=== PATIENT | male | born 1980 | race American Indian/Alaskan Native ===

== ENCOUNTER 2018-10-23 16:16 | Emergency (ER) | payer SELFPAY ==
[2018-10-23 17:56] VITALS: BP 119/74
--- NOTE | 2018-10-23 17:58 | Event Note ---
ED Screening Note Date of service: 10/23/18 Time: 17:56 ED Screening Note: 37 y/o male come in for abd pain since last night. Admits to diarrhea with 4 episodes. Last episode 1 hour [employer]. Took Pepto Bismol. No nausea pain diffused. This initial assessment/diagnostic orders/clinical plan/treatment(s) is/are subject to change based on patients health status, clinical progression and re- assessment by fellow clinical providers in the ED. Further treatment and workup at subsequent clinical providers discretion. Patient/guardian urged not to elope from the ED as their condition may be serious if not clinically assessed and managed. Initial orders include:
[2018-10-23 18:55] LABS: Basophils % (Auto) 0.6 % (0.0-1.8); Eosinophils # (Auto) 0.1 K/mm3 (0.0-0.4); Eosinophils % (Auto) 1.2 % (0.0-4.3); Hematocrit 41.4 % (35.5-45.6); Hemoglobin 13.5 gm/dl (11.8-15.2); Lymphocytes # (Auto) 3.9 K/mm3 (1.2-5.4); Lymphocytes % (Auto) 49.6 % (13.4-35.0); Mean Corpuscular HGB Conc 33 % (32-34); Mean Corpuscular Volume 86 fl (84-94); Monocytes # (Auto) 0.8 K/mm3 (0.0-0.8); Monocytes % (Auto) 10.1 % (0.0-7.3); Platelet Count 211 K/mm3 (140-440); Red Blood Count 4.81 M/mm3 (3.65-5.03); Red Cell Distribution Width 14.6 % (13.2-15.2)
[2018-10-23] MEDS ORDERED: LOMOTIL PO ONE (19:17)
[2018-10-23] MEDS ORDERED: PEPCID PO ONE (19:17)
[2018-10-23] MEDS ORDERED: ZOFRAN ODT PO ONE (19:17)
[2018-10-23] MEDS ORDERED: BENTYL ONE (19:48)
[2018-10-23 19:53] LABS: BUN/Creatinine Ratio 13; Blood Urea Nitrogen 14 mg/dL (9-20); Calcium 9.3 mg/dL (8.4-10.2)
[2018-10-23 19:54] LABS: Alanine Aminotransferase 10 units/L (7-56); Albumin 4.3 g/dL (3.9-5); Hemolysis Index 16
[2018-10-23] MEDS ORDERED: BENTYL PO ONE (20:18)
--- NOTE | 2018-10-23 20:41 | Emergency Department Report ---
ED N/V/D HPI - General Chief complaint: Nausea/Vomiting/Diarrhea Stated complaint: STOMACH VIRUS/DIARRHEA Time Seen by Provider: 10/23/18 17:55 Source: patient Mode of arrival: Ambulatory Limitations: No Limitations - History of Present Illness Initial comments: Patient is a 37-year-old AA male with no past medical history presents to the ED with complaint of acute onset persistent diarrhea, nausea, vomiting, and diffuse mild abdominal pain for the last 3 days. Patient states that the last time he had nausea and vomiting was 24 hours ago but that the diarrhea has been persistent. Patient denies fever, chills, dysuria, urinary frequency and urgen cy, testicular pain, chest pain, shortness of breath, sore throat, dizziness, back pain, hematuria or penile discharge. MD complaint: nausea, vomiting, diarrhea, abdominal pain -: Sudden, days(s) (3) Description of Vomiting: food contents, watery Description of Diarrhea: water Associated Abdominal Pain: Yes (Mildly diffuse) Location: diffuse Radiation: none Severity: moderate Pain Scale: 4 Quality: aching, dull Consistency: intermittent Improves with: none Worsens with: eating Context: possible food poisoning Associated Symptoms: denies other symptoms, loss of appetite, nausea/vomiting. denies: myalgias, chest pain, cough, diaphoresis, fever/chills, headaches, malaise, rash, dysuria, shortness of breath, syncope, weakness - Related Data Previous Rx's Medication Instructions Recorded Last Taken Type Dicyclomine [Bentyl] 20 mg PO Q6H PRN #20 tablet 10/23/18 Unknown Rx Diphenoxylate/Atropine [Lomotil] 1 - 2 tab PO Q4H PRN #15 tablet 10/23/18 Unknown Rx Ondansetron [Zofran Odt] 4 mg PO Q6HR PRN #15 tab.rapdis 10/23/18 Unknown Rx raNITIdine HCl [Zantac] 150 mg PO Q12H #20 tablet 10/23/18 Unknown Rx Allergies Allergy/AdvReac Type Severity Reaction Status Date / Time No Known Allergies Allergy Unverified 10/23/18 16:40 ED Review of Systems ROS: Stated complaint: STOMACH VIRUS/DIARRHEA Other details as noted in HPI Constitutional: denies: chills, fever Eyes: denies: eye pain, eye discharge, vision change ENT: denies: ear pain, throat pain Respiratory: denies: cough, shortness of breath, wheezing Cardiovascular: denies: chest pain, palpitations Endocrine: no symptoms reported Gastrointestinal: abdominal pain, nausea, vomiting, diarrhea Genitourinary: denies: urgency, dysuria Musculoskeletal: denies: back pain, joint swelling, arthralgia Skin: denies: rash, lesions Neurological: denies: headache, weakness, paresthesias Psychiatric: denies: anxiety, depression Hematological/Lymphatic: denies: easy bleeding, easy bruising ED Past Medical Hx - Past Medical History Previous Medical History?: No - Surgical History Past Surgical History?: No - Social History Smoking Status: Current Every Day Smoker Substance Use Type: None - Medications Home Medications: Home Medications Medication Instructions Recorded Confirmed Last Taken Type Dicyclomine [Bentyl] 20 mg PO Q6H PRN #20 tablet 10/23/18 Unknown Rx Diphenoxylate/Atropine [Lomotil] 1 - 2 tab PO Q4H PRN #15 tablet 10/23/18 Unknown Rx Ondansetron [Zofran Odt] 4 mg PO Q6HR PRN #15 tab.rapdis 10/23/18 Unknown Rx raNITIdine HCl [Zantac] 150 mg PO Q12H #20 tablet 10/23/18 Unknown Rx ED Physical Exam - General Limitations: No Limitations General appearance: alert, in no apparent distress - Head Head exam: Present: atraumatic, normocephalic, normal inspection - Eye Eye exam: Present: normal appearance, PERRL, EOMI. Absent: scleral icterus, conjunctival injection, nystagmus - ENT ENT exam: Present: normal exam, normal orophraynx, mucous membranes moist, TM's normal bilaterally, normal external ear exam - Neck Neck exam: Present: normal inspection, full ROM - Respiratory Respiratory exam: Present: normal lung sounds bilaterally. Absent: respiratory distress, wheezes, rales, rhonchi, chest wall tenderness, accessory muscle use, prolonged expiratory - Cardiovascular Cardiovascular Exam: Present: regular rate, normal rhythm, normal heart sounds. Absent: systolic murmur, diastolic murmur, rubs, gallop - GI/Abdominal GI/Abdominal exam: Present: soft, normal bowel sounds. Absent: distended, tenderness, guarding, rebound, hyperactive bowel sounds, hypoactive bowel sounds, mass - Rectal Rectal exam: Present: deferred - Extremities Exam Extremities exam: Present: normal inspection, full ROM, normal capillary refill - Back Exam Back exam: Present: normal inspection, full ROM. Absent: CVA tenderness (L), muscle spasm, paraspinal tenderness, vertebral tenderness - Neurological Exam Neurological exam: Present: alert, oriented X3, CN II-XII intact, normal gait, reflexes normal - Psychiatric Psychiatric exam: Present: normal affect, normal mood - Skin Skin exam: Present: warm, dry, intact, normal color. Absent: rash ED Course Vital Signs 10/23/18 17:54 Temperature 97.8 F Pulse Rate 80 Respiratory 18 Rate Blood Pressure 119/74 O2 Sat by Pulse 99 Oximetry - Reevaluation(s) Reevaluation #1: 10/23/18 20:40 This is a 37-year-old male who presented to the ED with nausea, vomiting, diarrhea and mild diffuse abdominal pain due to a suspected food poisoning. Patient is alert and oriented 3 in the ED and is not in distress. Labs were drawn and patient was treated for nausea and vomiting. Lab test results were reviewed and are unremarkable. Patient sent home on medications and advised follow-up with his primary care physician in 7-10 days for reevaluation or return to the ED immediately if symptoms get worse. ED Medical Decision Making - Lab Data Result diagrams: 10/23/18 18:37 10/23/18 19:00 - Medical Decision Making This is a 37-year-old male who presented to the ED with nausea, vomiting, diarrhea and mild diffuse abdominal pain due to a suspected food poisoning. Patient is alert and oriented 3 in the ED and is not in distress. Labs were drawn and patient was treated for nausea and vomiting. Lab test results were reviewed and are unremarkable. Patient sent home on medications and advised follow-up with his primary care physician in 7-10 days for reevaluation or return to the ED immediately if symptoms get worse - Differential Diagnosis Viral gastroenteritis; Nausea, vomiting and diarrhea Critical care attestation.: If time is entered above; I have spent that time in minutes in the direct care of this critically ill patient, excluding procedure time. ED Disposition Clinical Impression: Viral gastroenteritis, Nausea, vomiting and diarrhea Abdominal pain Qualifiers: Abdominal location: generalized Qualified Code(s): R10.84 - Generalized abdominal pain Disposition: TO HOME OR SELFCARE Is pt being admited?: No Does the pt Need Aspirin: No Condition: Stable Instructions: Acute Nausea and Vomiting (ED), Abdominal Pain (ED), Gastroenteritis (ED) Additional Instructions: TAKE MEDICATIONS WITH FOOD, DRINK PLENTY OF FLUIDS AND FOLLOW UP WITH YOUR PRIMARY CARE PHYSICIAN IN 5-7 DAYS FOR REEVALUATION. RETURN TO THE ED IMMEDIATELY IF SYMPTOMS GET WORSE. Prescriptions: Dicyclomine [Bentyl] 20 mg PO Q6H PRN #20 tablet PRN Reason: Pain , Severe (7-10) Diphenoxylate/Atropine [Lomotil] 1 - 2 tab PO Q4H PRN #15 tablet PRN Reason: Diarrhea raNITIdine HCl [Zantac] 150 mg PO Q12H #20 tablet Ondansetron [Zofran Odt] 4 mg PO Q6HR PRN #15 tab.rapdis PRN Reason: Nausea Referrals: [facility] [Outside] - 3-5 Days Forms: Work/School Release Form(ED) Time of Disposition: 20:45 Print Language: ZAMBIAN
== END 2018-10-23 20:58 | disposition home or self-care (01) ==
LOC: ED 16:16
DX: A08.4 Viral intestinal infection, unspecified (principal); F17.200 Nicotine dependence, unspecified, uncomplicated; Z79.899 Other long term (current) drug therapy
CPT/HCPCS: 36415; 80053; 83690; 85025; Q0162